=== PATIENT | female | born 1955 | race Caucasian/White ===

== ENCOUNTER 2018-06-11 05:56 | Emergency (ER) | payer MEDICARE, BC ==
[~2018-06-11] VITALS: Ht 162.6 cm; Wt 65.9 kg
[~2018-06-11 05:56] MED LIST: B-12 500 MCG; CALTRATE-600 W600 MG PO; EPI-PEN1 MG/ML MR; GLUCOSAMINE/CHONDROI PO; L-LYSINE PO; MVI PO; NIACIN 100100 MG/TAB PO; PHARMASSURE MA500 MG; PREDNISONE20 MG PO; PREMARIN 1.251.25 MG PO; REGLAN 5MG5 MG PO; VITAMIN B650 MG; VITAMIN C500 MG PO; XANAX0.5 MG PO
[2018-06-11 06:13] VITALS: BP 133/63; TEMP 98.2
[2018-06-11 06:51] LABS: BASO % 0.4 % (0.0-2.0); GRAN # 5.5 (1.4-6.5); GRAN % 52.8 % (42.2-75.2); HEMATOCRIT 42.2 % (37.0-47.0); LYMPH # 4.2 (1.2-3.4); LYMPH % 40.5 % (20.0-51.0); MEAN CELL VOLUME 93 fl (80.0-100.0); MEAN CORPUSCULAR HEMOGLOBIN 31 pg (27.0-31.0); MEAN CORPUSCULAR HGB CONC 33 g/dl (33.0-37.0); MEAN PLATELET VOLUME 9.1 fl (7.4-10.4); MONO # 0.6 (0.1-0.6); MONO % 6.1 % (1.7-9.3); PLATELET COUNT 355 K/mm3 (130-400); RED BLOOD COUNT 4.52 M/mm3 (4.10-5.30)
[2018-06-11 07:05] LABS: ALANINE AMINOTRANSFERASE 8 U/L (9-52); ALKALINE PHOSPHATASE 83 U/L (50-136); ANION GAP 7 mmol/L (7-16); AST,SGOT 19 U/L (15-37); BILIRUBIN,TOTAL 0.3 mg/dL (0.0-1.0); BLOOD UREA NITROGEN 14 mg/dL (7-17); C-REACTIVE PROTEIN 1.2 mg/dL (0.0-0.9); CALCIUM 9.2 mg/dL (8.4-10.2); CARBON DIOXIDE 25 mmol/L (22-30); CHLORIDE 108 mmol/L (98-107); CREATININE, serum 0.95 (0.52-1.25); GLUCOSE 88 mg/dL (74-106); LIPASE 49 U/L (23-300); POTASSIUM 4.2 mmol/L (3.4-5.0); SODIUM 140 mmol/L (137-145); TOTAL PROTEIN 7.1 gm/dL (6.4-8.2)
[2018-06-11 07:14] LABS: TROPONIN-I < 0.012 ng/mL (0.000-0.035)
[2018-06-11] MEDS ORDERED: PEPCID AC 10MG10 MG (07:29)
[2018-06-11 07:59] LABS: COLLECTION METHOD CLEAN CATCH
[2018-06-11] MEDS ORDERED: AMOXICILLIN 8751 TAB PO (08:07)
[2018-06-11 08:09] LABS: PH 5 (5-8); SQUAMOUS EPITHELIAL 0-2 /hpf; URINE APPEARANCE Clear; URINE BACTERIA None Seen /hpf; URINE BILIRUBIN Negative (NEGATIVE); URINE BLOOD Negative (NEGATIVE); URINE COLOR Straw; URINE GLUCOSE Negative (NEGATIVE); URINE KETONE Negative (NEGATIVE); URINE LEUKOCYTE ESTERASE Negative (NEGATIVE); URINE NITRATE Negative (NEGATIVE); URINE PROTEIN(semi-quant) Negative (NEGATIVE); URINE RBC 0-2 /hpf; URINE UROBILINOGEN Negative (NEGATIVE)
[2018-06-11 08:32] VITALS: PULSE 52
== END 2018-06-11 08:35 | disposition home or self-care (01) ==
LOC: COL.ER 05:56
PROVIDERS: Emergency Medicine
DX: R10.84 Generalized abdominal pain (principal); Z90.710 Acquired absence of both cervix and uterus; Z90.49 Acquired absence of other specified parts of digestive tract; F17.210 Nicotine dependence, cigarettes, uncomplicated
CPT/HCPCS: J0500; J3010; J7030; Q9967

== ENCOUNTER 2021-03-12 10:02 | Emergency (ER) | payer MEDICARE, BC ==
[~2021-03-12] VITALS: Ht 162.6 cm; Wt 68.2 kg
[~2021-03-12 10:02] MED LIST changes: +AMOXICILLIN 8751 TAB PO; +PEPCID AC 10MG10 MG
[2021-03-12 10:29] VITALS: TEMP 97.4
[2021-03-12 13:39] LABS: BASO % 0.3 % (0.0-2.0); GRAN # 10.7 K/mm3 (1.4-6.5); HEMATOCRIT 38.1 % (37.0-47.0); HEMOGLOBIN 13.2 g/dl (12.5-16.0); LYMPH # 2.7 K/mm3 (1.2-3.4); LYMPH % 19.4 % (20.0-51.0); MEAN CELL VOLUME 91 fl (80.0-100.0); MEAN CORPUSCULAR HEMOGLOBIN 31 pg (27-31); MEAN CORPUSCULAR HGB CONC 35 g/dl (33.0-37.0); MONO # 0.6 K/mm3 (0.1-0.6); MONO % 3.9 % (1.7-9.3); PLATELET COUNT 341 K/mm3 (130-400); RED BLOOD COUNT 4.21 M/mm3 (4.10-5.30); REDCELL DISTRIBUTION WIDTH-CV 13.3 % (11.5-14.5)
[2021-03-12 13:57] LABS: ALBUMIN 3.6 gm/dL (3.4-4.8); BILIRUBIN,TOTAL 0.3 mg/dL (0.2-1.2); CALCIUM 8.8 mg/dL (8.4-10.2); CREATININE, serum 0.83 mg/dL (0.57-1.11); POTASSIUM 4.4 mmol/L (3.5-4.5); TOTAL PROTEIN 6.8 gm/dL (6.2-8.1)
[2021-03-12] MEDS ORDERED: MIRALAX PA17 GM/Dose PO (15:05)
[2021-03-12] MEDS ORDERED: GLYCERIN S1 SUPP.REC RC (15:05)
[2021-03-12 15:36] VITALS: BP 121/76; PULSE 78
== END 2021-03-12 15:36 | disposition home or self-care (01) ==
LOC: COL.ER 10:02
PROVIDERS: Physician Assistant
DX: K59.00 Constipation, unspecified (principal); K21.9 Gastro-esophageal reflux disease without esophagitis; Z90.710 Acquired absence of both cervix and uterus; Z79.899 Other long term (current) drug therapy

== ENCOUNTER → 2021-10-08 | Outpatient (CLI) | payer MEDICARE, BC ==
[~2021-10-08] MED LIST changes: +GLYCERIN S1 SUPP.REC RC; +MIRALAX PA17 GM/Dose PO
== END ==
LOC: COL.RAD 10:07
DX: K57.30 Diverticulosis of large intestine without perforation or abscess without bleeding (principal); R16.0 Hepatomegaly, not elsewhere classified
CPT/HCPCS: Q9967